=== PATIENT | male | born 1965 | race Caucasian/White ===

== ENCOUNTER 2019-08-31 08:09 | Inpatient (IN) | payer MEDICAID ==
[2019-08-31] VITALS (14 sets, daily range): BP systolic 127–181; BP diastolic 60–95
[~2019-08-31] VITALS: Ht 160 cm; Wt 63.5 kg
[~2019-08-31 08:09] MED LIST: METF500T2 PO
--- NOTE | 2019-08-31 08:21 | NUR ---
PT AMBULATED TO ER BED 01
--- NOTE | 2019-08-31 08:26 | NUR ---
lab at bedside.
--- NOTE | 2019-08-31 08:28 | NUR ---
53 Y/O MALE PRESENTING WITH C/C OF LETHARGY X2 DAYS, AND BACK PAIN 8/10, PRESSURE SENSATION. PER , PT HAS NEVER HAD EPISODES OF SLEEPINESS, CONSTANTLY TALKING TO HIM TO WAKE HIM UP, PER PT HE FEELS WEAK AND ONLY WANTS TO SLEEP. DENIES ANY FALL, TRAUMA OR LOC. PER PT HX OF HTN AND DM. PT NKA. MEDS ON REGULAR BASIS: HTN, DM. LAST ORAL INTAKE THIS MORNING, TOLERATED WELL, DENIES N/V/D. AT BEDSIDE
[2019-08-31 08:37] LABS: APPEARANCE,URINE HAZY (CLEAR); BILIRUBIN,URINE NEGATIVE (NEGATIVE); BLOOD, URINE 1+ (NEGATIVE); COLOR,URINE YELLOW (YELLOW); LEUKOCYTE ESTERASE ,URINE 1+ (NEGATIVE); NITRITE, URINE NEGATIVE (NEGATIVE); PH,URINE 5.5 (5.0-9.0); UGLUCOSE TRACE (NEGATIVE)
[2019-08-31 08:46] LABS: BASOPHILS % (AUTO) 0.4 % (0.0-2.0); EOSINOPHILS % (AUTO) 0.4 % (0.0-4.0); LYMPHOCYTES # (AUTO) 0.3 K/uL (2.0-11.5); MEAN CORPUSCULAR HEMOGLOBIN 30 pg (27-31); MEAN CORPUSCULAR HGB CONC 31 g/dL (33-37); MEAN CORPUSCULAR VOLUME 96.3 fL (80-94); MONOCYTES # (AUTO) 0.3 K/uL (0.8-1.0); MONOCYTES % (AUTO) 5.4 % (1.7-9.3); NEUTROPHILS % (AUTO) 88.8 % (42.2-75.2); PLATELET COUNT (AUTO) 101 K/uL (140-450); RED BLOOD CELL COUNT(AUTO) 1.78 MIL/uL (4.20-6.10); WHITE BLOOD COUNT (AUTO) 5.7 K/uL (4.8-10.8)
[2019-08-31 08:56] LABS: ALBUMIN 3.5 g/dL (3.4-5.0); ASPARTATE AMINOTRANSFERASE 20 U/L (15-37); CHLORIDE 109 mmol/L (98-107); GFR ARICAN-AMERICAN 4 mL/min (>90); GLUCOSE 93 mg/dL (74-106); SODIUM SERUM 140 mmol/L (136-145); TOTAL BILIRUBIN 0.4 mg/dL (0.0-1.0)
[2019-08-31 09:11] LABS: POTASSIUM 7.2 mmol/L (3.5-5.1)
[2019-08-31 09:13] LABS: UREA NITROGEN, BLOOD 169 mg/dL (7-18)
[2019-08-31 09:14] LABS: CREATININE 17.5 mg/dL (0.7-1.3)
[2019-08-31 09:15] LABS: ANION GAP 30.9 (8-16); CARBON DIOXIDE 7.3 mmol/L (21-32)
[2019-08-31 09:19] LABS: ACETONE, SERUM NEGATIVE (NEGATIVE)
[2019-08-31 09:20] LABS: HEMOGLOBIN 5.3 g/dL (12.0-18.0)
[2019-08-31] MEDS ORDERED: INSULIN REGULAR, HUMAN 100 UNIT/ML VIAL IVP ONE (09:20)
[2019-08-31] MEDS ORDERED: DEXTROSE 50% 50 ML SYR IVP ONE (09:20)
[2019-08-31] MEDS ORDERED: ALBUTEROL 0.083% 2.5 MG/3 ML NEBU INH ONE (09:20)
[2019-08-31] MEDS ORDERED: SODIUM POLYSTYRENE 15 GM/60 ML UDBTL PO ONE ×2 (09:20→09:40)
[2019-08-31] MEDS ORDERED: SODIUM BICARBONATE 8.4% PFS 50 MEQ/50 ML SYR IVP ONE (09:20)
[2019-08-31 09:21] LABS: HEMATOCRIT 17.1 % (36-52)
--- NOTE | 2019-08-31 09:24 | NUR ---
ATTEMPTED TO RECONCILE HOME MEDICATION, FAMILY UNABLE TO REMEMBER NAMES. INSTRUCTED TO BRING MEDICATIONS FROM HOME SO RN CAN RECONCILE.
[2019-08-31] MEDS ORDERED: HYDROcodone/APAP 7.5/325 MG 1 TAB PO PRN (09:25)
[2019-08-31] MEDS ORDERED: DOCUSATE SODIUM 100 MG GELCAP PO PRN (09:25)
[2019-08-31] MEDS ORDERED: MORPHINE SULFATE 2 MG/ML SYR IVP PRN (09:25)
[2019-08-31] MEDS ORDERED: ONDANSETRON 4 MG/2 ML VIAL IM/IVP PRN (09:25)
[2019-08-31] MEDS ORDERED: ACETAMINOPHEN 325 MG TAB PO PRN (09:25)
[2019-08-31 09:32] LABS: RBC,URINE 0-5 /HPF (0-5)
[2019-08-31 09:33] LABS: URINE AMORPHOUS URATE 1+ /HPF (None Seen)
[2019-08-31] MEDS ORDERED: DEXT 5% / NACL 0.45% 1,000 ML IV ONE (09:40)
--- NOTE | 2019-08-31 09:40 | NUR ---
RT AT BEDSIDE.
[2019-08-31] MEDS ORDERED: SPIR50TA PO (09:44)
[2019-08-31] MEDS ORDERED: LISI-420 PO (09:44)
[2019-08-31] MEDS ORDERED: CHLO25TA33 PO (09:44)
[2019-08-31] MEDS ORDERED: CALCIUM GLUCONATE 10% 1,000 MG in NACL 0.9% 50 ML IV SCH (10:00)
[2019-08-31 10:17] LABS: BARBITURATE, URINE NEG. ng/ml (NEG <=200); BENZODIAZEPINE, URINE NEG. ng/mL (NEG <=200); CANNABINOID, URINE NEG. ng/mL (NEG <=50); COCAINE, URINE NEG. ng/mL (NEG <=300); OPIATE, URINE NEG. ng/mL (NEG <=2000); PHENCYCLIDINE SCREEN,URINE NEG. ng/mL (NEG <=25)
[2019-08-31 10:26] LABS: AMYLASE 206 U/L (25-115); CHOL/HDL RATIO 4.6 (1-4.5); FREE T4 (FREE THYROXINE) 0.61 ng/dL (0.76-1.46); HDL CHOLESTEROL 25 mg/dL (40-60); LDL (CALC) 65 mg/dL (60-100); LIPASE 509 U/L (73-393); THYROID STIMULATING HORMONE 5.54 uIU/mL (0.34-3.74); TRIGLYCERIDES 124 mg/dL (30-150)
--- NOTE | 2019-08-31 10:42 | NUR ---
PT TAKEN TO CT VIA W/C, ACCOMPANIED BY MONTESSORI PARAPROFESSIONAL.
[2019-08-31 10:43] LABS: PROTHROMBIN TIME 10.5 secs (10.8-13.4)
[2019-08-31] MEDS ORDERED: LORazepam 2 MG/ML VIAL IVP SCH (10:45)
[2019-08-31 10:50] LABS: PHOSPHORUS 10.6 mg/dL (2.5-4.9)
[2019-08-31] MEDS ORDERED: DEXTROSE 50% 50 ML SYR IVP PRN (11:00)
[2019-08-31] MEDS ORDERED: diphenhydrAMINE 50 MG/ML VIAL IVP SCH (11:19)
--- NOTE | 2019-08-31 11:31 | NUR ---
Patient will be admitted to care of HIGHER LEVEL OF CARE. Admited to ICU BED 5. Will go to room 5. Belongings list completed. Report to PONCHO CHAVEZ.
--- NOTE | 2019-08-31 11:31 | NUR ---
PT BEING ADMITTED TO ICU BED 5 VIA GURNEY WITH 2 ER STAFF. BED SIDE REPORT RECEIVED FROM ER NURSE. DR. STORM AT BED SIDE. WILL ADMIT PT.
--- NOTE | 2019-08-31 11:39 | NUR ---
DIALYSIS NURSE JUAN CALLED BY DR JARVIS AND NOTIFIED OF STAT DIALYSIS.
[2019-08-31] MEDS: BLOOD GLUCOSE MONITORING 1 DEV DEV FS SCH ×3 (11:55→21:00)
[2019-08-31] MEDS ORDERED: CALCIUM GLUCONATE 10% 2,000 MG in NACL 0.9% 100 ML IV SCH (12:10)
[2019-08-31] MEDS ORDERED: SODIUM BICARBONATE 8.4% 100 MEQ in DEXTROSE 5% 1,000 ML IV SCH (12:15)
--- NOTE | 2019-08-31 12:15 | NUR ---
DR. STORM RECEIVED HEMODIALYSIS, CENTRAL LINE, AND BLOOD TRANSFUSION CONSENTS SIGNED. VERIFIED.
--- NOTE | 2019-08-31 12:17 | NUR ---
SPOKE TO AND REGARDING ABG. PHYSICIANS STATE TO OBTAIN ABG POST DIALYSIS.
[2019-08-31 12:32] LABS: CARBON DIOXIDE 8.2 mmol/L (21-32); POTASSIUM 6.2 mmol/L (3.5-5.1)
[2019-08-31 12:33] LABS: CREATININE 17.5 mg/dL (0.7-1.3)
[2019-08-31] MEDS ORDERED: CALCIUM GLUCONATE 10% 1000 MG/10 ML VIAL ONE (12:33)
--- NOTE | 2019-08-31 13:10 | NUR ---
DR. STORM COMPLETED MARK CATH INSERTION. AWAITING FOR XRAY.
--- NOTE | 2019-08-31 13:25 | NUR ---
CHEST XRAY AT BED SIDE.
[2019-08-31] MEDS ORDERED: INFLUENZA VACCINE QUAD 0.5 ML SYR IMVAC PRN (13:30)
[2019-08-31] MEDS ORDERED: PNEUMOCOCCAL VACCINE 23 MCG/0.5 ML VIAL IMVAC SCH (13:30)
[2019-08-31] MEDS: LACTULOSE 20 GM/30 ML UDC PO SCH ×2 (14:30→22:02)
--- NOTE | 2019-08-31 14:50 | NUR ---
DR. CHEW MADE AWARE OF PT NOT BEING ABLE TO TAKE LACTULOSE.
--- NOTE | 2019-08-31 15:25 | NUR ---
BLOOD TRANSFUSION STARTED AND HR STARTED GOING UP. BENADRYL GIVEN. DR. GATES MADE AWARE.
--- NOTE | 2019-08-31 16:00 | NUR ---
DR. CHEW MADE AWARE OF HR BEING 125-130.
--- NOTE | 2019-08-31 16:30 | NUR ---
PT COMPLETED DIALYSIS WITH 100ML OUTPUT. 2 UNITS OF RBC ADMINISTERED. PT CONTINUES TO BE OBTUNDED.
[2019-08-31] MEDS: ASPIRIN 81 MG TAB.CHEW PO SCH (18:35)
[2019-08-31] MEDS ORDERED: ALBUTEROL SULFATE/IPRATROPIU 3 ML SOL IH PRN (18:40)
[2019-08-31] MEDS: ALBUTEROL SULFATE/IPRATROPIU 3 ML SOL IH SCH (19:00)
--- NOTE | 2019-08-31 19:00 | NUR ---
DR. BUSH IN TO SEE PT. REPORT GIVEN.
[2019-08-31] MEDS ORDERED: FUROSEMIDE 40 MG/4 ML VIAL IVP SCH (19:05)
--- NOTE | 2019-08-31 19:06 | NUR ---
DR. BUSH ORDERED TO GIVE ASPIRIN ORDER DAILY STARTING TOMORROW AM.
[2019-08-31] MEDS ORDERED: RACEPINEPHRINE 2.25% 13.5 MG/0.5 ML NEBU INH ONE ×2 (19:15→19:19)
--- NOTE | 2019-08-31 19:15 | NUR ---
BED SIDE REPORT GIVEN TO NIGHT NURSE. ALL PRECAUTIONS ARE IN PLACE.
--- NOTE | 2019-08-31 19:15 | NUR ---
RECEIVED REPORT FROM AM NURSE. PT AT BED, AWAKE, BREATHING LABORIOUSLY ON 02 3L/MIN NC, LUNG SOUNDS STRIDOR ON BILATERAL UPPER LOBES, DIMINISHED AT BASES, PERRL 3MM, RESPONDS TO NAME, AT BEDSIDE, HEART RATE REGULAR, SR ON MONITOR, S1S2 PRESENT, CAP REFILL <3S, PULSES 2+ BILATERAL UPPER AND LOWER EXTREMITIES, ABDOMEN SOFT, ROUND, NONDISTENDED, NONTENDER, BLADDER SOFT, ROUND, NONDISTENDED, NONTENDER, MARES CATHETER IN PLACE, DRAINING CLEAR, YELLOW URINE, PT HAS GENERALIZED WEAKNESS, SKIN WARM, DRY, COLOR APPROPRIATE TO ETHNICITY, INTACT, PT HAS RIGHT IJ MARK CATHETER, PT HAS PERIPHERAL IV ON RIGHT WRIST 20 GAUGE, RIGHT AC 18 GAUGE, RIGHT WRIST 20 GAUGE RUNNING SODUM BICARBONATE 8.4% 100 MEQ AT D5 1000 ML, HOB 30 DEGREES, SIDE RAILS UP X2, BED AT LOWEST POSITION.
[2019-08-31 19:23] LABS: MEAN CORPUSCULAR HEMOGLOBIN 30 pg (27-31); MEAN CORPUSCULAR HGB CONC 34 g/dL (33-37); MEAN CORPUSCULAR VOLUME 88.8 fL (80-94); PLATELET COUNT (AUTO) 89 K/uL (140-450); RED BLOOD CELL COUNT(AUTO) 2.24 MIL/uL (4.20-6.10); RED CELL DISTRIBUTION WIDTH 14.8 % (11.6-13.7)
[2019-08-31 19:42] LABS: HEMOGLOBIN 6.7 g/dL (12.0-18.0)
[2019-08-31 19:43] LABS: HEMATOCRIT 19.9 % (36-52)
[2019-08-31] MEDS ORDERED: methylPREDNISolone SS 125 MG/2 ML VIAL IVP ONE (19:50)
[2019-08-31] MEDS ORDERED: methylPREDNISolone SS 125 MG/2 ML VIAL ONE (19:57)
[2019-08-31 20:50] LABS: ALBUMIN 2.9 g/dL (3.4-5.0); ANION GAP 18.1 (8-16); CARBON DIOXIDE 23.6 mmol/L (21-32)
[2019-08-31 20:52] LABS: POTASSIUM 2.7 mmol/L (3.5-5.1)
[2019-08-31 20:54] LABS: CREATININE 8.7 mg/dL (0.7-1.3)
[2019-08-31] MEDS ORDERED: guaiFENesin 600 MG TABER PO SCH (21:00)
[2019-08-31] MEDS ORDERED: PROPOFOL 1000 MG/100 ML PREMIX 100 ML IV ONE (21:25)
[2019-08-31] MEDS ORDERED: ETOMIDATE 20 MG/10 ML VIAL IVP SCH (22:00)
[2019-08-31] MEDS ORDERED: SUCCINYLCHOLINE CHLORIDE 200 MG/10 ML VIAL IVP SCH (22:00)
[2019-08-31] MEDS ORDERED: KCL 20 MEQ/WATER INJ PREMIX 100 ML IV SCH (22:00)
--- NOTE | 2019-08-31 22:00 | NUR ---
STARTED PROPOFOL DRIP. DRY WEIGHT 65 KG,
[2019-08-31] MEDS: PIPERACILLIN/TAZOBACTAM 2.25 GM in DEXTROSE 5% 50 ML IV SCH (22:02)
[2019-09-01] VITALS (97 sets, daily range): BP systolic 142–192; BP diastolic 65–90
--- NOTE | 2019-09-01 | NUR ---
REPOSITIONED PT, SUCTIONED PT WITH SCANT, THICK YELLOW MUCOUS.
[2019-09-01 00:18] LABS: LYMPHOCYTES % (MANUAL) 1 % (20-46); MONOCYTES % (MANUAL) 1 % (5-12)
--- NOTE | 2019-09-01 01:13 | NUR ---
2155 LOWERED FIO2 TO 30% POST ABG RESULTS SATS 100%
--- NOTE | 2019-09-01 03:10 | NUR ---
PT AT BED EYES CLOSED, BREATHING REGULARLY TRACH TO VENT. REPOSITIONED PT. PT TOLERATED WELL.
[2019-09-01] MEDS: PIPERACILLIN/TAZOBACTAM 2.25 GM in DEXTROSE 5% 50 ML IV SCH ×4 (04:14→20:31)
--- NOTE | 2019-09-01 05:10 | NUR ---
MEDICATIONS GIVEN. SUCTIONED PT WITH SCANT, THICK YELLOW MUCOUS.
[2019-09-01] MEDS ORDERED: HEPARIN PER PHARMACY MC PRN (06:55)
[2019-09-01] MEDS ORDERED: hePARIN / DEXT 5% PREMIX 250 ML IV SCH (06:55)
--- NOTE | 2019-09-01 07:05 | NUR ---
CHANGE OF SHIFT REPORT GIVEN TO AM NURSE. PT AT STABLE CONDITION AT THIS TIME.
[2019-09-01] MEDS: ALBUTEROL SULFATE/IPRATROPIU 3 ML SOL IH SCH ×3 (07:16→19:32)
--- NOTE | 2019-09-01 07:20 | NUR ---
RECEIVED REPORT FROM ATHLETE MANAGER NURSERADHA. PT IN BED, EASILY ROUSED BY NAME. ETT TO VENT, LIP 26CM, FIO2 30%, RR14, PEEP 5, TV 500. PERRL 3MM, SR ON MONITOR, S1S2 PRESENT, LUNG SOUNDS CLEAR, BOWEL SOUNDS ACTIVE. MARES CATHETER IN PLACE, DRAINING CLEAR, YELLOW URINE. GENERALIZED WEAKNESS, SKIN INTACT, WARM AND DRY. RIGHT IJ MARK CATHETER FOR DIALYSIS. PERIPHERAL IV ON RIGHT WRIST 20 GAUGE, RIGHT HAND 22, RIGHT AC 18 GAUGE RUNNING SODIUM BICARBONATE 100 MEQ IN D5 1000 ML AT 50ML/HR, SEDATED WITH PROPOFOL. PT IS OFF RESTRAINT, NO AGITATION OR DISRUPTING BEHAVIOR. HOB 30 DEGREES, SIDE RAILS UP X2, BED AT LOWEST POSITION. Addendum: 09/01/19 at 1926 by Carlton John RN DRY WEIGHT 65KG.
[2019-09-01] MEDS: BLOOD GLUCOSE MONITORING 1 DEV DEV FS SCH ×4 (08:12→20:59)
[2019-09-01] MEDS: SPIRONOLACTONE 25 MG TAB PO SCH (08:13)
[2019-09-01] MEDS: LACTOBACILLUS RHAMNOSUS GG 1 EACH CAP PO SCH (08:13)
[2019-09-01] MEDS: ASPIRIN 81 MG TAB.CHEW PO SCH (08:13)
[2019-09-01] MEDS: PROPOFOL 1000 MG/100 ML PREMIX 100 ML IV PRN (08:15)
[2019-09-01] MEDS: INSULIN LISPRO SLIDING SCALE 100 UNITS/ML VIAL SUBQ PRN (08:22)
[2019-09-01 08:26] LABS: HEMATOCRIT 21.2 % (36-52); HEMOGLOBIN 7.3 g/dL (12.0-18.0); LYMPHOCYTES # (AUTO) 0.1 K/uL (2.0-11.5); LYMPHOCYTES % (AUTO) 1.4 % (20.5-51.1); MEAN CORPUSCULAR HEMOGLOBIN 31 pg (27-31); MEAN CORPUSCULAR HGB CONC 34 g/dL (33-37); MONOCYTES # (AUTO) 0.1 K/uL (0.8-1.0); MONOCYTES % (AUTO) 2.1 % (1.7-9.3); NEUTROPHILS # (AUTO) 4.6 K/uL (1.8-7.7); NEUTROPHILS % (AUTO) 96.5 % (42.2-75.2); PLATELET COUNT (AUTO) 76 K/uL (140-450); RED BLOOD CELL COUNT(AUTO) 2.38 MIL/uL (4.20-6.10); RED CELL DISTRIBUTION WIDTH 15.7 % (11.6-13.7); WHITE BLOOD COUNT (AUTO) 4.8 K/uL (4.8-10.8)
--- NOTE | 2019-09-01 08:51 | NUR ---
PATIENT HAS BEEN SCREENED AND CATEGORIZED HIGH NUTRITION RISK. PATIENT WILL BE SEEN WITHIN 1-2 DAYS OF ADMISSION. 09/01/[address]
[2019-09-01 09:06] LABS: ANION GAP 14.7 (8-16); CARBON DIOXIDE 26.7 mmol/L (21-32); POTASSIUM 3.4 mmol/L (3.5-5.1)
[2019-09-01 09:09] LABS: MAGNESIUM 1.6 mg/dL (1.8-2.4); PHOSPHORUS 7.8 mg/dL (2.5-4.9)
[2019-09-01 09:24] LABS: CREATININE 10.3 mg/dL (0.7-1.3)
[2019-09-01] MEDS ORDERED: guaiFENesin 20 MG/ML UDC PO SCH (09:48)
[2019-09-01] MEDS ORDERED: EPOETIN ALFA 4,000 UNITS/ML VIAL IV SCH (10:00)
[2019-09-01] MEDS ORDERED: LOSARTAN 50 MG TAB NG SCH (10:00)
[2019-09-01] MEDS ORDERED: APIXABAN 2.5 MG TAB PO SCH (10:30)
--- NOTE | 2019-09-01 11:00 | NUR ---
PT HAD LOOSE BM X3 THIS MORNING, POSSIBLY DUE TO KAYEXALATE FROM YESTERDAY.
--- NOTE | 2019-09-01 11:38 | NUR ---
CALLED RESIDENT MD, DR YEBOAH. MADE HIM AWARE OF PLT 76. IS OK WITH GIVING ELIQUIS 2.5MG NOW
--- NOTE | 2019-09-01 11:55 | NUR ---
DIALYSIS MARTINEZ IS HERE, GOING TO START DIALYSIS SOON
--- NOTE | 2019-09-01 13:03 | NUR ---
*S.T. note* MD order for bedside swallow eval received, chart reviewed. Spoke w/ KATHY Vincent at pt's bedside. Pt currently intubated. Confirmed w/ RN that eval cannot be completed at this time. Request that order for S.T. swallow eval be cancelled at this time and reordered 24 hrs. post extubation. Endorsed to KATHY Vincent. Thank you. Time 1220
--- NOTE | 2019-09-01 13:48 | NUR ---
DISCHARGE PLANNIN53 Y/O MALE PATIENT FROM HOME, WHO CAME IN DUE TO GENERALIZED WEAKNESS AND SLEEPINESS X3 DAYS. PAST MEDICAL HISTORY OF HTN AND DM. INITIAL DIAGNOSIS OF ACUTE RENAL FAILURE AND HYPERKALEMIA. LABS ON ADMISSION INCLUDE WBC 5.7, H/H 5.3/17.1, NA/K 140/7.2, BUN/CREA 169/17.5 AND MAG 3.0. RENAL U/S SHOWED ECHOGENIC KIDNEYS SUGGESTING MEDICAL RENAL DISEASE AND LARGE POST VOID RESIDUAL [address] SHOWED PATCHY INFILTRATES RIGHT UPPER LOBE AND LEFT LOWER LOBE AND ATELECTATIC CHANGES IN THE LEFT LUNG BASE. HEAD CT NORMAL. NEPHRO CONSULT WITH DR. JARVIS FOR AYANA. CARDIO CONSULT WITH DR. SMITH FOR ELEVATED TROPONIN 0.271. CRITICAL CARE CONSULT WITH DR. KEYS. MARK LINE WAS PLACED FOR EMERGENCY HD. 2 'U' PRBC GIVEN DURING DIALYSIS. ORALLY INTUBATED IN ICU AND PLACED ON VENT FIO2 30%. ON ZOSYN. ON PROPOFOL DRIP. DC PLAN PENDING ON PATIENT'S RESPONSE TO TREATMENT. Addendum: 09/03/19 at 0913 by Aishwarya Mac PATIENT GOT EXTUBATED 09/02 AT 1105. CURRENTLY ON 3 LPM/NC, SATTING 100%. CURRENT LABS INCLUDE WBC 7.9, H/H 8.9/26.0 AND MAG 1.7. S/P HD YESTERDAY AND WITH HD ORDER TOMORROW. FOR SWALLOW AND PT EVALUATION TODAY. ON TELEMETRY STATUS NOW. STILL ON SOLU CORTEF AND ZOSYN IV. SURGICAL CONSULT WITH DR. SHEIKH FOR PERMACATH PLACEMENT. PATIENT WILL NEED OUT PATIENT DIALYSIS CHAIR TIME AT [facility]. CM TO FOLLOW UP. Addendum: 09/03/19 at 1137 by Natalie Benito CM DC PLANNING CALLED [facility] [phone] SPOKE WITH SANDRA REQUESTED THE CHAIR TIME AND FAXED ALL THE REQUESTED PAPERWORK TO [phone] . PT IS SCHEDULE FOR TUNNEL CATH WITH DR SHEIKH TODAY. DC PLAN TO GO HOME TOMORROW AND F/U WITH OUT PATIENT DIALYSIS
--- NOTE | 2019-09-01 14:19 | NUR ---
09/01/19 RD INITIAL ASSESSMENT COMPLETED PLEASE REFER TO NUTRITION ASSESSMENT UNDER CARE ACTIVITY FOR ESTIMATED NUTRITIONAL NEEDS. 1. RECOMMEND NEPRO @ 30 ML/HR -THIS WILL PROVIDE 720 ML OF VOLUME, 1296 KCAL, AND 58 GM OF PROTEIN WHICH MEETS 92 % OF KCAL NEEDS AND 103% OF PROTEIN NEEDS 2. RECOMMEND FREE WATER FLUSH 120 ML Q4H 3. IF/WHEN PT IS EXTUBATED AND MEDICALLY STABLE TO ADVANCE TO AN ORAL DIET, CONSIDER ORDERING A SWALLOW EVALUATION 4. RD TO FOLLOW-UP 2-3 DAYS, HIGH RISK SUMMER SING[address] RD
--- NOTE | 2019-09-01 14:40 | NUR ---
ZOSYN DELAYED DUE TO DIALYSIS
--- NOTE | 2019-09-01 15:30 | NUR ---
NOTIFIED RESIDENT MD YEBOAH, BP 178/87. DR YEBOAH SAID WILL PASS DOWN THE MESSAGE TO DR CHEW.
--- NOTE | 2019-09-01 15:54 | NUR ---
PT ASLEEP AT THIS TIME NOT IN ANY DISTRESS. VENT ALARMS REMAIN ON. WILL CONTINUE TO MONITOR.
--- NOTE | 2019-09-01 17:15 | NUR ---
CALLED DR CHEW, NOTIFIED BP 189/80, ORDER RECEIVED. WILL GIVE HYDRALAZINE IVP.
[2019-09-01] MEDS: hydrALAZINE 20 MG/ML VIAL IVP PRN ×2 (17:29→22:14)
--- NOTE | 2019-09-01 17:37 | NUR ---
PT REMAINS ON DOCUMENTED VENT SETTINGS. PT NOT SOB NOT IN RESPIRATORY DISTRESS. VENT ALARMS REMAIN ON AND FUNCTIONING. ETT IS SECURE WITH A PATENT AIRWAY. FAMILY IS BEDSIDE.
--- NOTE | 2019-09-01 18:05 | NUR ---
DR CHARANJIT NICHOLE, WANTS TO DC PROPOFOL AND START CPAP I/E 10/5 TOMORROW MORNING. Addendum: 09/01/19 at 1926 by Carlton John RN ENDORSED TO CELL INSTALLER KATHY. Addendum: 09/01/19 at 1931 by Carlton John RN CHANGE CPAP I/E 10/5 TO CPAP 10 AND 5
--- NOTE | 2019-09-01 18:15 | NUR ---
MADE DR KNIGHT AWARE ABOUT DIETITIAN'S FEEDING RECOMMENDATION.
--- NOTE | 2019-09-01 19:30 | NUR ---
RECEIVED PT FROM AM NURSE. PT AT BED AWAKE, RASS -2, PERRLA 3MM, BRISK, OPEN EYES SPONTANEOUSLY, FOLLOWS SIMPLE COMMANDS, DRY WEIGHT 65 KG, BREATHING REGULARLY ETT TO VENT AC/VC FIO2 28%, RR 14, TV 500 FLOW 40, PEEP 5, LUNG SOUNDS CLEAR THROUGHOUT, DIMINISHED AT BASES, ABDOMEN, SOFT, ROUND, NONDISTENDED, NONTENDER, BOWEL SOUNDS ACTIVE IN ALL QUADRANTS, BLADDER, SOFT, ROUND, NONDISTENDED, NONTENDER, MARES CATHETER IN PLACE, DRAINING CLEAR, YELLOW, URINE WITH SEDIMENTATION, PT HAS GENERALIZED WEAKNESS, SKIN INTACT, WARM, DRY. PT HAS LEFT WRIST 20 GAUGE PERIPHERAL IV, PT HAS LEFT HAND 22 GAUGE PERIPHERAL IV, LEFT AC 18 GAUGE PERIPHERAL IV RUNNING NS AT 3 ML/HR, PROPOFOL AT 10 MCG/KG/MIN. HOB 30 DEGREES, SIDE RAILS UP X2, BED AT LOWEST POSITION. Addendum: 09/02/19 at 0313 by Jalen Arboleda RN PT NGT IN PLACE.
--- NOTE | 2019-09-01 19:47 | NUR ---
RECEIVED PATIENT ETT TO MECHANICAL VENTILATOR AT DOCUMENTED SETTINGS. AIRWAY SECURE AND PATENT. SUCTIONED SCANT AMOUNT OF THICK, YELLOW SECRETIONS. VENT CHECK DONE. VENT ALARMS ON AND AUDIBLE. VENT PLUGGED INTO RED OUTLET WITH WHEELS LOCKED. AMBU BAG AT [facility]. SCHEDULED BREATHING TREATMENT ADMINISTERED. TOLERATED TX WELL WITHOUT ADVERSE SIDE EFFECTS. NO ACUTE RESPIRATORY DISTRESS NOTED AT THIS TIME. WILL CONTINUE TO MONITOR.
[2019-09-01] MEDS: HYDROCORTISONE NA SUCC 100 MG/2 ML VIAL IV SCH (20:30)
[2019-09-01] MEDS: guaiFENesin 20 MG/ML UDC PO SCH (20:31)
[2019-09-01] MEDS: APIXABAN 2.5 MG TAB PO SCH (20:33)
--- NOTE | 2019-09-01 21:20 | NUR ---
MEDICATIONS GIVEN. VAP ORAL CARE PERFORMED, SUCTIONED SCANT, THICK YELLOW SPUTUM, PT TOLERATED PROCEDURE WELL.
--- NOTE | 2019-09-01 22:15 | NUR ---
BP ELEVATED, HYDRALAZINE IVP GIVEN.
--- NOTE | 2019-09-01 23:18 | NUR ---
PT AT BED, EYES CLOSED BREATHING REGULARLY, TRACH TO VENT. VS WNL. WILL CONTINUE TO MONITOR. Addendum: 09/02/19 at 0333 by Jalen Arboleda RN CORRECTION PT ETT TO VENT
[2019-09-02] VITALS (54 sets, daily range): BP systolic 120–193; BP diastolic 61–105
--- NOTE | 2019-09-02 00:23 | NUR ---
VAP ORAL CARE PERFORMED, SUCTIONED, SCANT THICK YELLOW MUCOUS. PT TOLERATED PROCEDURE WELL.
[2019-09-02] MEDS: PROPOFOL 1000 MG/100 ML PREMIX 100 ML IV PRN (00:37)
--- NOTE | 2019-09-02 02:39 | NUR ---
UPDATED DR. KNIGHT WITH PT ELEVATED BP.
--- NOTE | 2019-09-02 04:05 | NUR ---
PT AT BED EYES CLOSED, BREATHING REGULARLY. WILL CONTINUE TO MONITOR
[2019-09-02] MEDS: cloNIDine 0.1 MG TAB PO PRN ×2 (04:57→12:27)
[2019-09-02] MEDS: HYDROCORTISONE NA SUCC 100 MG/2 ML VIAL IV SCH ×3 (04:57→21:00)
[2019-09-02] MEDS: PIPERACILLIN/TAZOBACTAM 2.25 GM in DEXTROSE 5% 50 ML IV SCH ×3 (04:58→20:59)
[2019-09-02 06:14] LABS: ANION GAP 14.5 (8-16); CARBON DIOXIDE 27.6 mmol/L (21-32); POTASSIUM 3.1 mmol/L (3.5-5.1)
[2019-09-02 06:15] LABS: MAGNESIUM 1.5 mg/dL (1.8-2.4); PHOSPHORUS 4.7 mg/dL (2.5-4.9)
[2019-09-02 06:30] LABS: BASOPHILS % (AUTO) 0.1 % (0.0-2.0); HEMATOCRIT 23.9 % (36-52); HEMOGLOBIN 8.1 g/dL (12.0-18.0); LYMPHOCYTES # (AUTO) 0.3 K/uL (2.0-11.5); LYMPHOCYTES % (AUTO) 4.8 % (20.5-51.1); MEAN CORPUSCULAR HEMOGLOBIN 30 pg (27-31); MEAN CORPUSCULAR HGB CONC 34 g/dL (33-37); MEAN CORPUSCULAR VOLUME 89.3 fL (80-94); MONOCYTES # (AUTO) 0.5 K/uL (0.8-1.0); MONOCYTES % (AUTO) 8.7 % (1.7-9.3); NEUTROPHILS # (AUTO) 4.7 K/uL (1.8-7.7); NEUTROPHILS % (AUTO) 86.4 % (42.2-75.2); PLATELET COUNT (AUTO) 82 K/uL (140-450); RED BLOOD CELL COUNT(AUTO) 2.68 MIL/uL (4.20-6.10); RED CELL DISTRIBUTION WIDTH 15.2 % (11.6-13.7); WHITE BLOOD COUNT (AUTO) 5.5 K/uL (4.8-10.8)
--- NOTE | 2019-09-02 06:30 | NUR ---
PT AT BED AWAKE, RASS -2, BREATHING REGULARLY ON ETT TO VENT.
[2019-09-02] MEDS ORDERED: MAGNESIUM OXIDE 400 MG TAB PO SCH (06:40)
[2019-09-02 06:42] LABS: CREATININE 6.9 mg/dL (0.7-1.3)
[2019-09-02] MEDS: ALBUTEROL SULFATE/IPRATROPIU 3 ML SOL IH SCH ×3 (06:42→19:44)
--- NOTE | 2019-09-02 06:42 | NUR ---
rec'd pt on pb840 vent settings ac 14 vt 500 peep 5 fio2 28% alarms on and audible and vent is plugged into red outlet, ambu bag at side of vent b\s are clear bilaterally, no hhn given pt sleeping with no signs of distress noted at this time, pt is orally intubated with 7.5 et tube secured with anchor fast at 24 cm
--- NOTE | 2019-09-02 07:05 | NUR ---
CHANGE OF SHIFT REPORT GIVEN TO AM NURSE. PT BP ELEVATED
[2019-09-02] MEDS: BLOOD GLUCOSE MONITORING 1 DEV DEV FS SCH ×4 (07:30→20:58)
--- NOTE | 2019-09-02 07:30 | NUR ---
RECEIVED REPORT FROM HIDE AND SKIN COLERER NURSE. PT IS SEDATED, RASS -2. AFEBRILE. NORMAL SINUS RHYTHM ON MONITOR. S1 S2 HEARD. ETT TO VENT W/ SETTINGS: FIO2 28%, RR14, PEEP 5, TV 500. LUNG SOUNDS CLEAR THROUGHOUT, BREATHING EVEN AND UNLABORED. ABDOMEN SOFT, NONTENDER, BOWEL SOUNDS ACTIVE. NGT IN PLACE TO RIGHT NARE. PLACEMENT CONFIRMED. PT IS ON TUBE FEEDING NEPRO AT 30 ML/HR WITH FWF 100 ML Q6H. RESIDUALS 15 ML AT THIS TIME. RIGHT IJ MARK CATHETER FOR DIALYSIS IN PLACE. PERIPHERAL IVS ON RIGHT WRIST G20, RIGHT HAND G22, RIGHT AC G18 ASYMPTOMATIC, PATENT AND INTACT. PT IS ON PROPOFOL DRIP AT 10 MCG/KG/MIN (DRY WEIGHT 65 KG). MARES CATHETER IN PLACE, DRAINING CLEAR, YELLOW URINE TO GRAVITY. SKIN INTACT, DRY AND WARM TO TOUCH. HOB 30 DEGREES, SIDE RAILS UP X2, BED AT LOWEST POSITION. CALL LIGHT WITHIN REACH. NO SIGNS OF DISTRESS NOTED AT THIS TIME. WILL CONTINUE TO MONITOR.
--- NOTE | 2019-09-02 08:10 | NUR ---
DR. DUMONT AND RESIDENT GROUP IN TO SEE PT. WILL FOLLOW UP ON ORDERS.
[2019-09-02] MEDS: guaiFENesin 20 MG/ML UDC PO SCH ×2 (08:35→20:59)
[2019-09-02] MEDS: SPIRONOLACTONE 25 MG TAB PO SCH (08:35)
[2019-09-02] MEDS: LOSARTAN 50 MG TAB NG SCH (08:35)
[2019-09-02] MEDS: LACTOBACILLUS RHAMNOSUS GG 1 EACH CAP PO SCH (08:36)
[2019-09-02] MEDS: APIXABAN 2.5 MG TAB PO SCH ×2 (08:36→21:00)
[2019-09-02] MEDS: ASPIRIN 81 MG TAB.CHEW PO SCH (08:36)
[2019-09-02 08:57] LABS: HEPATITIS A ANTIBODY IGM Negative (Negative); HEPATITIS B CORE AB TOTAL Negative (Negative); HEPATITIS B SURFACE ANTIBODY Non Reactive (.); HEPATITIS B SURFACE ANTIGEN Negative (Negative)
--- NOTE | 2019-09-02 09:45 | NUR ---
SPOKE WITH DR. DONOHUE REGARDING SBT. ORDER RECEIVED. RT AWARE.
--- NOTE | 2019-09-02 10:59 | NUR ---
DR. DONOHUE IN TO SEE PT. WILL FOLLOW UP ON ORDERS.
--- NOTE | 2019-09-02 11:05 | NUR ---
PT EXTUBATED. DR. DONOHUE AT BEDSIDE. VSS. NO SIGNS OF DISTRESS NOTED. PER DR. DONOHUE, NO MORE TUBE FEEDING OR EATING FOR TODAY. WILL DO SWALLOW EVAL TOMORROW.
--- NOTE | 2019-09-02 11:05 | NUR ---
PT EXTUBATED AND PLACED ON 3LNC PER DR. DONOHUE
--- NOTE | 2019-09-02 11:30 | NUR ---
BLOOD SUGAR 175. DR. YEBOAH AWARE THAT PT IS NOT ON ANY FEEDING S/P EXTUBATION. HOLD INSULIN AT THIS TIME PER DR. YEBOAH.
[2019-09-02] MEDS ORDERED: POTASSIUM CHLORIDE 40 MEQ, LIDOCAINE MPF 1% 25 MG in NACL 0.9% 250 ML IV SCH (13:00)
--- NOTE | 2019-09-02 13:10 | NUR ---
HEMODIALYSIS AT BEDSIDE. Addendum: 09/02/19 at 1705 by Adolfo Sterling RN HOLD ZOSYN UNTIL AFTER HD PER LANGUAGE TRANSLATOR.
--- NOTE | 2019-09-02 15:48 | NUR ---
HEMODIALYSIS COMPLETED. 3L OUTPUT. VSS. PT TOLERATED WELL. ZOSYN ADMINISTERED AFTER HD.
--- NOTE | 2019-09-02 16:30 | NUR ---
PT HAD MODERATE AMOUNT OF BOWEL MOVEMENT. CLEANED AND REPOSITIONED. LINENS AND GOWN CHANGED. PT TOLERATED WELL.
--- NOTE | 2019-09-02 18:30 | NUR ---
NO CHANGE IN CONDITION AT THIS TIME. VSS. FAMILY AT BEDSIDE. SAFETY PRECAUTIONS IN PLACE.
--- NOTE | 2019-09-02 19:17 | NUR ---
REPORT GIVEN TO LAY OUT WORKER RN FOR CONTINUITY OF CARE. PT IS IN STABLE CONDITION.
--- NOTE | 2019-09-02 19:18 | NUR ---
RECEIVED REPORT FROM DAYSHIFT NURSE AT PATIENTS BEDSIDE. PATIENT AWAKE AND ALERT, NO COMPLAINTS AT THIS TIME. WILL FOLLOWUP CARE.
--- NOTE | 2019-09-02 19:52 | NUR ---
PATIENT ANOx4, JAPANESE SPEAKING. ON NASAL CANNULA 3L, SATURATIONS 100%. PATIENT IS S/P EXTUBATION. NO SIGNS OF SHORTNESS OF BREATH OR LABORED BREATHING. LUNG SOUNDS ARE SLIGHTLY DIMINISHED. S1S2, SINUS RHYTHM ON MONITOR. BLOOD PRESSURE SLIGHTLY ELEVATED-SBP IN 170'S. RIGHT AC 18 G, RIGHT WRIST 20 G, AND RIGHT HAND 22G, ALL LINES ARE FLUSHED AND PATENT, GOOD BLOOD RETURN, NO SYMPTOMS. RIGHT SIDE IJ MARK CATHETER IN PLACE, NO PIGTAIL. NGT IN PLACE TO RIGHT NARE, CLOSED TO PATIENT. ABDOMEN SOFT AND NONTENDER WITH ACTIVE BOWEL SOUNDS. MARES CATHETER IN PLACE WITH CLEAR YELLOW URINE NOTED. PATIENT ABLE TO MOVE ALL EXTREMITIES. SIDERAILS UPx3, CALL LIGHT WITHIN REACH, PATIENT UPDATED ON TREATMENT PLAN. WILL FOLLOWUP WITH BLOOD PRESSURE MEDICATIONS, AND CONTINUE TO MONITOR.
--- NOTE | 2019-09-02 20:00 | NUR ---
PATIENT HAD A SMALL BOWEL MOVEMENT, SOFT AND BROWN. COLLECTED SAMPLE AND OCCULT BLOOD SENT TO LAB. CHANGED PATIENTS LINENS AND PROVIDED SKIN CARE. SKIN INTACT.
--- NOTE | 2019-09-02 20:50 | NUR ---
SPOKE WITH RESIDENT MD REGARDING SCHEDULED ELIQUIS AND PATIENTS PLATELETS LOW-82. MD CONFIRMED TO HOLD ELIQUIS. PATIENT ALSO NPO AT THE TIME AND IF COVERAGE NEEDED, HOLD INSULIN. BLOOD SUGAR 140, SUGAR IS OK. ALSO INFORMED MD ABOUT HIGH BLOOD [id number], WILL ADMINISTER PRN HYDRALAZINE.
[2019-09-02] MEDS: hydrALAZINE 20 MG/ML VIAL IVP PRN ×2 (21:00→23:26)
--- NOTE | 2019-09-02 22:00 | NUR ---
REASSESSED PATIENTS BLOOD PRESSURE AFTER HYDRALAZINE ADMINISTRATION, BP WITHIN NORMAL LIMITS.
[2019-09-03] VITALS (10 sets, daily range): BP systolic 135–194; BP diastolic 60–91
--- NOTE | 2019-09-03 00:35 | NUR ---
RESIDENT MD INTO ASSESS PATIENT, PATIENT DENIES PAIN. NO NEW ORDERS.
--- NOTE | 2019-09-03 02:39 | NUR ---
PATIENT HAD ANOTHER BOWEL MOVEMENT, MODERATE IN SIZE, LOOSE AND BROWN AND GREENISH. PATIENT ALERT AND ORIENTED, INFORMED PATIENT TO NOTIFY NURSE WHEN HE HAS TOILETING NEEDS. ORIENTED PATIENT TO BED JAMES. PATIENT VERBALIZED UNDERSTANDING.
--- NOTE | 2019-09-03 04:10 | NUR ---
PATIENT INDEPENDENT, ONLY NEEDS MINIMAL ASSISTANCE. MILDLY WEAK. PATIENT ABLE TO SELF TURN/POSITION. PROVIDED SPONGE BATH, PATIENT ABLE TO WIPE UPPER EXTREMITIES AND FACE. MARES CARE PROVIDED AND ORAL CARE. PATIENT TOLERATED WELL.
--- NOTE | 2019-09-03 04:50 | NUR ---
PT EVALUATED BY RESIDENT GROUP AND DR. PEDRAZA. MADE AWARE OF LOW URINE OUTPUT AND MG 1.7. NO NEW ORDER AT THIS TIME. Addendum: 09/03/19 at 0809 by Michelle Gannon RN WRONG TIME CHARTING
[2019-09-03] MEDS: PIPERACILLIN/TAZOBACTAM 2.25 GM in DEXTROSE 5% 50 ML IV SCH ×3 (05:01→20:52)
[2019-09-03] MEDS: HYDROCORTISONE NA SUCC 100 MG/2 ML VIAL IV SCH ×3 (05:01→20:48)
[2019-09-03 06:15] LABS: ANION GAP 15.8 (8-16); CARBON DIOXIDE 25.8 mmol/L (21-32); POTASSIUM 3.6 mmol/L (3.5-5.1)
--- NOTE | 2019-09-03 06:16 | NUR ---
CRITICAL CUUM-[id number], TRENDING DOWN. WILL ENDORSE TO
[2019-09-03 06:17] LABS: CREATININE 5.3 mg/dL (0.7-1.3)
[2019-09-03 06:20] LABS: MAGNESIUM 1.7 mg/dL (1.8-2.4); PHOSPHORUS 4.8 mg/dL (2.5-4.9)
--- NOTE | 2019-09-03 06:25 | NUR ---
RESTING WELL IN BED, EYES CLOSED, ALL VITALS STABLE, FLACC 0. BED IN LOWEST POSITION, SIDERAILS UP x3, CALL LIGHT WITHIN REACH. WILL CONTINUE TO MONITOR.
[2019-09-03 06:26] LABS: HEMOGLOBIN 8.9 g/dL (12.0-18.0); LYMPHOCYTES # (AUTO) 0.2 K/uL (2.0-11.5); LYMPHOCYTES % (AUTO) 2.9 % (20.5-51.1); MEAN CORPUSCULAR HEMOGLOBIN 31 pg (27-31); MEAN CORPUSCULAR HGB CONC 34 g/dL (33-37); MEAN CORPUSCULAR VOLUME 89.7 fL (80-94); MONOCYTES # (AUTO) 0.5 K/uL (0.8-1.0); NEUTROPHILS # (AUTO) 7.2 K/uL (1.8-7.7); NEUTROPHILS % (AUTO) 91.1 % (42.2-75.2); PLATELET COUNT (AUTO) 116 K/uL (140-450); RED CELL DISTRIBUTION WIDTH 15.1 % (11.6-13.7); WHITE BLOOD COUNT (AUTO) 7.9 K/uL (4.8-10.8)
--- NOTE | 2019-09-03 06:36 | NUR ---
CRITICAL LAB- PHOSPHORUS 0.7, LAST VALUE-4.8, RESIDENT AWARE. PATIENT NOW ORDERED FOR DOWNGRADE. PATIENT STABLE, SATURATIONS 100% ON ROOM AIR. WILL CARRY OUT Addendum: 09/03/19 at 0737 by Miesha Aviles RN WRONG PATIENT, CRITICAL LAB PHOSPHORUS FOR BED 2.
[2019-09-03] MEDS: ALBUTEROL SULFATE/IPRATROPIU 3 ML SOL IH SCH ×3 (06:57→19:00)
--- NOTE | 2019-09-03 07:15 | NUR ---
RECEIVED REPORT FROM NEUROSURGERY PHYSICIAN RN. PT RESTING IN BED. A/O X4. MAKES NEEDS KNOWN. ROOM AIR, 96%. SR ON MONITOR. FLUCTUATING BP NOTED ON MONITOR: HIGH TO NORMAL. RIJ MARK CATHETER IN PLACE. COVERED WITH DRESSING. DRESSING INTACT. NG TUBE IN PLACE RIGHT NARES. POSITIVE PLACEMENT. 0 RESIDUAL. LUNGS CLEAR. PERIPHERAL LINES: RAC 18 G SALINE LOCK, RT HAND 22G, SALINE LOCK AND RT WRIST 20 G. INTACT ALL IV LINES. FLUSHED. ABDOMEN SOFT, ROUND AND NON-TENDER. ACTIVE BOWEL SOUND. F/C IN PLACE DRAINING MINIMAL AMOUNT OF YELLOW URINE VIA GRAVITY. SKIN INTACT. DENIES PAIN. DENIES ANY HEADACHE, DIZZINESS OR DISCOMFORT. BED IN LOW POSITION LOCKED. WILL CONTINUE TO MONITOR.
[2019-09-03] MEDS: BLOOD GLUCOSE MONITORING 1 DEV DEV FS SCH ×4 (07:39→20:56)
--- NOTE | 2019-09-03 07:50 | NUR ---
PT EVALUATED BY RESIDENT GROUP AND DR. PEDRAZA. MADE AWARE OF LOW URINE OUTPUT AND MG 1.7. NO NEW ORDER AT THIS TIME.
[2019-09-03] MEDS ORDERED: SODIUM PHOS / POTASSIUM PHOS 1 PKT PDR PO SCH (08:00)
--- NOTE | 2019-09-03 08:10 | NUR ---
PT EVALUATED BY DR. DONOHUE. UPDATED PT STATUS. NO NEW ORDER AT THIS TIME.
[2019-09-03] MEDS: LOSARTAN 50 MG TAB NG SCH (08:21)
[2019-09-03] MEDS: ASPIRIN 81 MG TAB.CHEW PO SCH (08:22)
[2019-09-03] MEDS: SPIRONOLACTONE 25 MG TAB PO SCH (08:22)
[2019-09-03] MEDS: LACTOBACILLUS RHAMNOSUS GG 1 EACH CAP PO SCH (08:22)
[2019-09-03] MEDS: APIXABAN 2.5 MG TAB PO SCH ×2 (08:23→20:49)
[2019-09-03] MEDS: guaiFENesin 20 MG/ML UDC PO SCH ×2 (08:24→20:49)
--- NOTE | 2019-09-03 09:15 | NUR ---
PT TRANSFERRED TO TELE UNIT ROOM 117 ON STABLE CONDITION. FAMILY WAS THERE DURING TRANSFER. BELONGINGS WITH FAMILY. REPORT GIVEN TO KATHY LEBLANC.
--- NOTE | 2019-09-03 09:30 | NUR ---
RECEIVED PT FROM ICU NURSE TRINH. PT IS AWAKE AND ALERT, NO S/S OF ACUTE DISTRESS NOTED. PT HAS A NG TUBE IN PLACE. R IJ MARK CATH IN PLACE FOR HD. THREE IV SITES NOTED: R AC 18 G, R HAND 22 G, AND R WRIST 20 G. SALINE LOCKED. PT HAS A MARES CATHETER, DRAINING CLEAR YELLOW URINE. PER ICU NURSE, PT NEEDS TO HAVE A BEDSIDE SWALLOW EVAL SO THAT THE NG TUBE CAN BE REMOVED. PT IS ON FALL RISK PRECAUTIONS, HOWEVER, CAN AMBULATE WITH STAND-BY ASSISTANCE. PT'S RELATIVE IS AT BEDSIDE.
--- NOTE | 2019-09-03 09:56 | NUR ---
VS UPON TRANSFER: BP 128/83, HR 65, O2 97%, TEMP 97.9, RR 16.
[2019-09-03] MEDS ORDERED: KCL 20 MEQ/WATER INJ PREMIX 100 ML IV SCH (11:00)
--- NOTE | 2019-09-03 11:52 | NUR ---
09/03/19 RD FOLLOW UP COMPLETED PLEASE REFER TO NUTRITION ASSESSMENT UNDER CARE ACTIVITY FOR ESTIMATED NUTRITIONAL NEEDS. 1. PENDING SWALLOW EVALUATION RECOMMENDATION FOR FOOD TEXTURE & LIQUID THICKNESS WITH RENAL DIETARY RESTRICTION 2. RD PROVIDED RENAL DIET NUTRITION EDUCATION TO PATIENT AND FAMILY 3. RD TO FOLLOW-UP 3-5 DAYS, MODERATE RISK SUMMER SINGH, RD
--- NOTE | 2019-09-03 12:22 | NUR ---
BEDSIDE SWALLOW EVAL COMPLETED, PT WAS ABLE TO SWALLOW A GLASS OF WATER WITHOUT ANY ISSUES. DR BOWERS IS AWARE. Addendum: 09/03/19 at 1231 by Jeimy Sevilla RN NG TUBE REMOVED. DR BOWERS AWARE TO PLACE A DIET ORDER FOR THE PT
--- NOTE | 2019-09-03 12:29 | NUR ---
JUAN FROM ACUTE DIALYSIS NOTIFIED REGARDING HEMODIALYSIS ORDER FOR TOMORROW.
--- NOTE | 2019-09-03 14:01 | NUR ---
CALLED [facility] TO GET A LATE LUNCH TRAY FOR PT
[2019-09-03] MEDS: hydrALAZINE 20 MG/ML VIAL IVP PRN ×2 (14:16→23:06)
--- NOTE | 2019-09-03 14:19 | NUR ---
PRN IV HYDRALAZINE GIVEN FOR ELEVATED BP. WILL REASSESS IN AN HOUR.
--- NOTE | 2019-09-03 14:21 | NUR ---
PT HAVING PHYSICAL THERAPY AT THIS TIME
--- NOTE | 2019-09-03 15:04 | NUR ---
PT HAVING SWALLOW EVAL WITH SPEECH THERAPIST.
--- NOTE | 2019-09-03 15:41 | NUR ---
* ST NOTE * Pt seen sitting up in chair w/daughter present. Pt consenting to evaluation w/daughter present. Pt alert, cooperative and engaged, reporting minimal throat pain at this time. Pt and daughter education completed re: throat pain potentially s/p extubation, which may subside in 7-14 days, w/pt and daughter verbalizing understanding. Pt tolerating 8/8 alternating PO trials of regular solid saltine crackers as well as 6/6 alternating PO trials of thin liquid cranberry juice via a straw, all w/o s/s of aspiration or choking. Pt and daughter education completed re: aspiration precautions and safe swallow compensatory strategies pt and caregivers/family could utilize to aid pt w/swallow function, w/pt and caregiver/Daughter verbalizing understanding and demonstrating 100% follow through as trained by clinician at this time. Because pt reporting throat pain and as requested by pt, it is thus recommended pt's PO diet consistency be modified to mechanical soft-chopped textures w/thin liquids for all meals, w/aspiration precautions in place. No further ST follow up recommended at this time. Pt, caregiver/daughter and caregiver/Nsg Linda education completed re: results of evaluation; benefits of abiding by aspiration precautions and recommended PO diet consistency; and prognosis for improvement; with pt, caregiver/daughter and caregiver/Nsg Linda verbalizing understanding and agreement w/clinician's recommendations. Recommend: - PO MEDICATION ADMINISTRATION OF MECHANICAL SOFT-CHOPPED TEXTURES W/THIN LIQUIDS for all meals - WHOLE PILL MEDICATION ADMINISTRATION OR CRUSHED IN PUREE OR MECH SOFT TEXTURES - MAINTAIN ASPIRATION PRECAUTIONS DURING PT'S PO INTAKE - Pt can self-feed at this time - CUE/REMIND PT TO SIT UP AT 80-90 DEGREE ANGLE DURING PO INTAKE; EAT/DRINK SLOWLY; ALTERNATING BTWN SOLIDS & LIQUIDS; AND TO TAKE SMALL BITES/SIPS No further ST follow up recommended at this time. NOMS Level 2 Time In/Out 14:25 - 14:55
--- NOTE | 2019-09-03 16:32 | NUR ---
P.T. NOTES P.T. EVAL COMPLETED; PATIENT MAY AMBULATE IN ROOM AD BEN.
[2019-09-03] MEDS: INSULIN LISPRO SLIDING SCALE 100 UNITS/ML VIAL SUBQ PRN ×2 (17:30→21:01)
--- NOTE | 2019-09-03 19:25 | NUR ---
PT ENDORSED TO CHRO NURSE IN STABLE CONDITION
--- NOTE | 2019-09-03 19:30 | NUR ---
Received endorsement from AM shift RN; patient A/Ox4, able to make needs known, Maltese speaking, ambulatory with standby assist. Patient talking with ; introduced self, updated board. No SOB or distress noted, on room air. IV sites noted on right antecubital, 18 gauge, right hand, 22 gauge, and right wrist 20 gauge, all saline locked. Diaz catheter in place. Bed in the lowest position, call light within reach. Initial assessment done. Will continue to monitor.
--- NOTE | 2019-09-03 19:50 | NUR ---
PT REFUSED HHN TX. PT SAID HIS BREATHING IS GOOD. NO SOB OR DISTRESS NOTED. PT ON ROOM AIR SPO2 98% CLEAR BREATH SOUNDS. WILL CONTINUE TO MONITOR.
--- NOTE | 2019-09-03 20:40 | NUR ---
Vitals taken, no distress noted.
--- NOTE | 2019-09-03 20:44 | NUR ---
Consent for Permacatheter placement signed at this time. Used [employer] for translation services. Carpenter Assembler name: Micha, number [phone].
--- NOTE | 2019-09-03 21:40 | NUR ---
Due meds given, tolerated well.
--- NOTE | 2019-09-03 23:06 | NUR ---
Vitals taken; patient noted with BP 161/67; will administer PRN Hydralazine per protocol. Will continue to monitor.
[2019-09-04] VITALS: BP 130/55
--- NOTE | 2019-09-04 00:10 | NUR ---
Vitals re-taken; BP 130/55, HR 60.
--- NOTE | 2019-09-04 02:15 | NUR ---
Checks made; patient asleep, eyes closed, visible chest rise and fall noted.
[2019-09-04 04:00] VITALS: BP 159/67
[2019-09-04] MEDS: HYDROCORTISONE NA SUCC 100 MG/2 ML VIAL IV SCH (04:19)
[2019-09-04] MEDS: PIPERACILLIN/TAZOBACTAM 2.25 GM in DEXTROSE 5% 50 ML IV SCH (04:19)
[2019-09-04] MEDS ORDERED: BUPIVACAINE-MPF/EPI 0.25% 30 ML VIAL INJ ONE (12:21)
[2019-09-04] MEDS ORDERED: LIDOCAINE/EPI MPF 1%1:200000 30 ML VIAL INJ ONE (12:21)
[2019-09-04] MEDS ORDERED: LIDOCAINE 1% 500 MG/50 ML VIAL ONE (12:25)
[2019-09-04] MEDS ORDERED: fentaNYL 0.05 MG/ML VIAL ONE (12:41)
[2019-09-04] MEDS ORDERED: PROPOFOL 200 MG/20 ML VIAL IV ONE (12:48)
[2019-09-05 20:11] LABS: ANION GAP 16.8 (8-16); CARBON DIOXIDE 24.5 mmol/L (21-32); PHOSPHORUS 6.1 mg/dL (2.5-4.9); POTASSIUM 3.3 mmol/L (3.5-5.1)
[2019-09-06 09:42] LABS: CREATININE 7.6 mg/dL (0.7-1.3)
[2019-09-06 10:36] LABS: HEMATOCRIT 25.8 % (36-52); HEMOGLOBIN 8.7 g/dL (12.0-18.0); LYMPHOCYTES # (AUTO) 0.3 K/uL (2.0-11.5); LYMPHOCYTES % (AUTO) 3.2 % (20.5-51.1); MEAN CORPUSCULAR HEMOGLOBIN 31 pg (27-31); MEAN CORPUSCULAR HGB CONC 34 g/dL (33-37); MEAN CORPUSCULAR VOLUME 90.6 fL (80-94); MONOCYTES # (AUTO) 0.5 K/uL (0.8-1.0); MONOCYTES % (AUTO) 5.9 % (1.7-9.3); NEUTROPHILS # (AUTO) 8.3 K/uL (1.8-7.7); NEUTROPHILS % (AUTO) 90.9 % (42.2-75.2); PLATELET COUNT (AUTO) 134 K/uL (140-450); RED BLOOD CELL COUNT(AUTO) 2.84 MIL/uL (4.20-6.10); RED CELL DISTRIBUTION WIDTH 14.7 % (11.6-13.7); WHITE BLOOD COUNT (AUTO) 9.2 K/uL (4.8-10.8)
== END 2019-09-04 22:45 | disposition home or self-care (01) | DRG 469 ==
LOC: MED 08:09 → MIC 09:32 → MTU 09-03 09:07
PROVIDERS: ADMIT General Practice; ATTEND General Practice
PROC: 02HV33Z Insertion of Infusion Device into Superior Vena Cava, Percutaneous Approach (ICD-10-PCS; 2019-08-31)
PROC: B548ZZA Ultrasonography of Superior Vena Cava, Guidance (ICD-10-PCS; 2019-08-31)
PROC: 5A1D70Z Performance of Urinary Filtration, Intermittent, Less than 6 Hours Per Day (ICD-10-PCS; 2019-08-31)
PROC: 30233N1 Transfusion of Nonautologous Red Blood Cells into Peripheral Vein, Percutaneous Approach (ICD-10-PCS; 2019-08-31)
PROC: 3E0234Z Introduction of Serum, Toxoid and Vaccine into Muscle, Percutaneous Approach (ICD-10-PCS; 2019-08-31)
PROC: 5A1945Z Respiratory Ventilation, 24-96 Consecutive Hours (ICD-10-PCS; principal; 2019-09-01)
PROC: 0BH17EZ Insertion of Endotracheal Airway into Trachea, Via Natural or Artificial Opening (ICD-10-PCS; 2019-09-01)
PROC: 5A1D70Z Performance of Urinary Filtration, Intermittent, Less than 6 Hours Per Day (ICD-10-PCS; 2019-09-01)
PROC: 5A1D70Z Performance of Urinary Filtration, Intermittent, Less than 6 Hours Per Day (ICD-10-PCS; 2019-09-02)
PROC: 5A1D70Z Performance of Urinary Filtration, Intermittent, Less than 6 Hours Per Day (ICD-10-PCS; 2019-09-04)
PROC: 0JH63XZ Insertion of Tunneled Vascular Access Device into Chest Subcutaneous Tissue and Fascia, Percutaneous Approach (ICD-10-PCS; 2019-09-04)
PROC: 02HV33Z Insertion of Infusion Device into Superior Vena Cava, Percutaneous Approach (ICD-10-PCS; 2019-09-04)
PROC: B5181ZA Fluoroscopy of Superior Vena Cava using Low Osmolar Contrast, Guidance (ICD-10-PCS; 2019-09-04)
PROC: 02PYX3Z Removal of Infusion Device from Great Vessel, External Approach (ICD-10-PCS; 2019-09-04)
DX: N17.0 Acute kidney failure with tubular necrosis (principal); J96.21 Acute and chronic respiratory failure with hypoxia; J69.0 Pneumonitis due to inhalation of food and vomit; G93.41 Metabolic encephalopathy; I13.2 Hypertensive heart and chronic kidney disease with heart failure and with stage 5 chronic kidney disease, or end stage renal disease; K85.90 Acute pancreatitis without necrosis or infection, unspecified; N18.6 End stage renal disease; I50.43 Acute on chronic combined systolic (congestive) and diastolic (congestive) heart failure; D69.6 Thrombocytopenia, unspecified; E11.22 Type 2 diabetes mellitus with diabetic chronic kidney disease; E11.65 Type 2 diabetes mellitus with hyperglycemia; E83.39 Other disorders of phosphorus metabolism; N39.0 Urinary tract infection, site not specified; E87.5 Hyperkalemia; K72.90 Hepatic failure, unspecified without coma; K86.1 Other chronic pancreatitis; E87.6 Hypokalemia; E83.41 Hypermagnesemia; E03.9 Hypothyroidism, unspecified; E11.319 Type 2 diabetes mellitus with unspecified diabetic retinopathy without macular edema; E11.21 Type 2 diabetes mellitus with diabetic nephropathy; D63.1 Anemia in chronic kidney disease; Z91.19 Patient's noncompliance with other medical treatment and regimen; Z23 Encounter for immunization; Z79.4 Long term (current) use of insulin; Z79.899 Other long term (current) drug therapy; Z87.891 Personal history of nicotine dependence
CPT/HCPCS: 36415; 36600; 70450; 71045; 71250; 76700; 76770; 80048; 80053; 80305; 81001; 82009; 82140; 82150; 82272; 82550; 82553; 82803; 82948; 83036; 83690; 83735; 83880; 84100; 84436; 84439; 84443; 84484; 85025; 85610; 85730; 86704; 86706; 86708; 86709; 86803; 86886; 86900; 86901; 86920; 87040; 87070; 87081; 87086; 87205; 87340; 92610; 93005; 94002; 94003; 94640; 96361; 96365; 96375; 99285; J0360; J0610; J0696; J0885; J1200; J1642; J1644; J1720; J1815; J2001; J2060; J2543; J2704; J2930; J3010; J3480; J3490; J7030; J7060; J7613; J7620; P9016; Q0092

== ENCOUNTER 2020-05-17 14:21 | Emergency (ER) | payer MEDICAID ==
[~2020-05-17] VITALS: Ht 162.6 cm; Wt 63.5 kg
[~2020-05-17 14:21] MED LIST changes: +CHLO25TA33 PO; +LISI-420 PO; -METF500T2 PO; +SPIR50TA PO
[2020-05-17 14:25] VITALS: BP 91/60
--- NOTE | 2020-05-17 15:20 | NUR ---
MITCH Hoang is evaluating the patient at bedside.
--- NOTE | 2020-05-17 15:24 | NUR ---
54 MALE C/O LOW BLOOD PRESSURE POST DIALYSIS TODAY [facility]- HTN, DM, DIALYSIS M,W,F
[2020-05-17 15:33] LABS: BASOPHILS % (AUTO) 0.9 % (0.0-2.0); EOSINOPHILS % (AUTO) 1.1 % (0.0-4.0); HEMATOCRIT 38.2 % (36-52); HEMOGLOBIN 12.5 g/dL (12.0-18.0); LYMPHOCYTES # (AUTO) 0.7 K/uL (2.0-11.5); LYMPHOCYTES % (AUTO) 16.7 % (20.5-51.1); MEAN CORPUSCULAR HEMOGLOBIN 32 pg (27-31); MEAN CORPUSCULAR HGB CONC 33 g/dL (33-37); MEAN CORPUSCULAR VOLUME 98.6 fL (80-94); MONOCYTES # (AUTO) 0.5 K/uL (0.8-1.0); MONOCYTES % (AUTO) 10.3 % (1.7-9.3); NEUTROPHILS # (AUTO) 3.1 K/uL (1.8-7.7); PLATELET COUNT (AUTO) 175 K/uL (140-450); RED BLOOD CELL COUNT(AUTO) 3.88 MIL/uL (4.20-6.10); RED CELL DISTRIBUTION WIDTH 14.4 % (11.6-13.7); WHITE BLOOD COUNT (AUTO) 4.4 K/uL (4.8-10.8)
--- NOTE | 2020-05-17 15:36 | NUR ---
photogrammetric tech at bedside.
--- NOTE | 2020-05-17 16:21 | NUR ---
ASSISTED PT TO GET UP TO USE THE RESTROOM
[2020-05-17 16:35] LABS: ANION GAP 17.9 (8-16); CARBON DIOXIDE 28.5 mmol/L (21-32); POTASSIUM 4.4 mmol/L (3.5-5.1); TOTAL BILIRUBIN 0.5 mg/dL (0.0-1.0)
[2020-05-17 16:37] LABS: CREATININE 8.1 mg/dL (0.6-1.3)
--- NOTE | 2020-05-17 16:42 | NUR ---
PT WAS ABLE TO AMBULATE TO THE RESTROOM WITH NO ASSISTANCE
[2020-05-17 16:50] LABS: APPEARANCE,URINE CLOUDY (CLEAR); BILIRUBIN,URINE 2+ (NEGATIVE); BLOOD, URINE NEGATIVE (NEGATIVE); COLOR,URINE BROWN (YELLOW); LEUKOCYTE ESTERASE ,URINE NEGATIVE (NEGATIVE); NITRITE, URINE NEGATIVE (NEGATIVE); PH,URINE 5.5 (5.0-9.0); UGLUCOSE NEGATIVE (NEGATIVE)
[2020-05-17 17:34] VITALS: BP 91/60
== END 2020-05-17 17:35 | disposition home or self-care (01) ==
LOC: MED 14:21
DX: R51 Headache (principal); R42 Dizziness and giddiness; R53.1 Weakness; E11.22 Type 2 diabetes mellitus with diabetic chronic kidney disease; I12.0 Hypertensive chronic kidney disease with stage 5 chronic kidney disease or end stage renal disease; N18.6 End stage renal disease; Z99.2 Dependence on renal dialysis; Z98.890 Other specified postprocedural states; Z79.899 Other long term (current) drug therapy
CPT/HCPCS: 36415; 71045; 80053; 81003; 85025; 93005; 99285

== ENCOUNTER 2022-07-14 08:52 | Day surgery (SDC) | payer OTHER ==
[~2022-07-14] VITALS: Ht 162.6 cm; Wt 65.3 kg
[~2022-07-14 08:52] MED LIST changes: +CEFE1SOL IV; -CHLO25TA33 PO; +FAMO-90 PO; -LISI-420 PO; +METR500S15 IV; +NIFE60TE5 PO
[2022-07-14] MEDS ORDERED: fentaNYL citrate 0.05 MG/ML VIAL ONE (12:37)
[2022-07-14] MEDS ORDERED: LIDOCAINE 2% 100 MG/5 ML UJET TP ONE (12:37)
[2022-07-14] MEDS ORDERED: fentaNYL citrate 0.05 MG/ML VIAL IVP ONE (15:00)
== END 2022-07-14 14:00 | disposition home or self-care (01) ==
LOC: MMU 08:52 → MDS 08:52
PROVIDERS: ATTEND Internal Medicine Gastroenterology
DX: R19.5 Other fecal abnormalities (principal); K57.30 Diverticulosis of large intestine without perforation or abscess without bleeding; K64.9 Unspecified hemorrhoids; K59.00 Constipation, unspecified; K21.9 Gastro-esophageal reflux disease without esophagitis; I12.0 Hypertensive chronic kidney disease with stage 5 chronic kidney disease or end stage renal disease; E11.22 Type 2 diabetes mellitus with diabetic chronic kidney disease; N18.6 End stage renal disease; Z99.2 Dependence on renal dialysis; Z79.899 Other long term (current) drug therapy; Z20.822 Contact with and (suspected) exposure to COVID-19
CPT/HCPCS: 45378; 87426; J3010